=== PATIENT | male | born 1945 | race Caucasian/White ===

== ENCOUNTER 2021-03-16 12:59 | Inpatient (IN) | payer MEDICARE, OTHER ==
[~2021-03-16] VITALS: Ht 182.9 cm; Wt 116.0 kg
[2021-03-16 15:03] LABS: BASOPHIL 0.7 % (0-2); HCT 43.6 % (42.0-52.0); HGB 14.4 g/dl (13.2-18.0); MCH 30.5 pg (25.0-31.0); MCV 92.4 fL (78.0-100.0); MPV 9.5 fL (6.0-9.5); NEUTROPHIL 62.8 % (41-80); NRBC 0; PLT 173 K/uL (150-400); RBC 4.72 M/uL (4.70-6.00); RDW 14.1 % (11.5-14.0); WBC 10.1 K/uL (4.0-10.5)
[2021-03-16 15:40] LABS: ALBUMIN 3.8 g/dL (3.4-5.0); BILIRUBIN - TOTAL 0.3 mg/dL (0.2-1.0); BUN/CREAT RATIO (CALC) 28.8 RATIO; CREATININE 1.25 mg/dL (0.67-1.17); GLOBULIN (CALCULATION) 4.1 g/dL; POTASSIUM 4.2 mmol/L (3.5-5.1); TOTAL PROTEIN 7.9 g/dL (6.4-8.2)
[2021-03-16] MEDS ORDERED: HYDROCODON-ACE1 EAC6 PO (18:16)
[2021-03-16] MEDS ORDERED: NORVASC2.5 M1 PO (18:17)
[2021-03-16] MEDS ORDERED: NORVASC5 MG PO (18:43)
[2021-03-16] MEDS ORDERED: SYNTHROID25 MCG PO (18:43)
[2021-03-16] MEDS ORDERED: HCTZ12.5 MG PO (18:44)
[2021-03-16 21:31] LABS: BILIRUBIN NEGATIVE (NEGATIVE); BLOOD NEGATIVE Ery/uL (NEGATIVE); CLARITY CLEAR (CLEAR); COLOR YELLOW (YELLOW); GLUCOSE (U) NORMAL (NORMAL); LEUKOCYTES NEGATIVE Leu/uL (NEGATIVE); NITRITE NEGATIVE (NEGATIVE); PROTEIN NEGATIVE (NEGATIVE); SPECIFIC GRAVITY 1.025 (1.001-1.030); UROBILINOGEN 0.2 mg/dL (0.2-1.0)
[2021-03-17 07:32] LABS: BUN/CREAT RATIO (CALC) 28.7 RATIO; CREATININE 1.01 mg/dL (0.67-1.17); POTASSIUM 3.7 mmol/L (3.5-5.1)
== END 2021-03-17 15:10 | disposition other institution (70) | DRG 309 ==
LOC: FER 12:59 → FTCU 16:14
PROVIDERS: Emergency Medicine; ADMIT Internal Medicine
DX: I44.2 Atrioventricular block, complete (principal); N17.9 Acute kidney failure, unspecified; Z20.822 Contact with and (suspected) exposure to COVID-19; E03.9 Hypothyroidism, unspecified; I11.9 Hypertensive heart disease without heart failure; E78.5 Hyperlipidemia, unspecified; Z96.643 Presence of artificial hip joint, bilateral; G89.29 Other chronic pain; E66.9 Obesity, unspecified; Z90.89 Acquired absence of other organs; Z98.890 Other specified postprocedural states; Z79.890 Hormone replacement therapy; Z79.899 Other long term (current) drug therapy; Z82.49 Family history of ischemic heart disease and other diseases of the circulatory system; Z80.0 Family history of malignant neoplasm of digestive organs; Z68.34 Body mass index [BMI] 34.0-34.9, adult
CPT/HCPCS: 36415; 71045; 80048; 80053; 80061; 81003; 83880; 84145; 84439; 84443; 84484; 85025; 93005; U0002